=== PATIENT | male | born 1965 | race Two or more races ===

== ENCOUNTER 2019-03-07 05:48 | Day surgery (SDC) | payer OTHER ==
[~2019-03-07] VITALS: Ht 165.1 cm; Wt 74.3 kg
[~2019-03-07 05:48] MED LIST: atorvastatin PO; lisinopril PO; metformin PO; zoloft PO
[2019-03-07 07:44] VITALS: Ht 165.1 cm; Wt 74.3 kg
[2019-03-07 07:58] VITALS: BP 122/78; PULSE 56; RESP 22
[2019-03-07 09:28] VITALS: BP 108/64; RESP 20
== END 2019-03-07 14:26 | disposition home or self-care (01) ==
LOC: GIL 05:48
PROVIDERS: ATTEND Internal Medicine Gastroenterology
DX: Z12.11 Encounter for screening for malignant neoplasm of colon (principal); K64.8 Other hemorrhoids; D12.5 Benign neoplasm of sigmoid colon; D12.3 Benign neoplasm of transverse colon; I10 Essential (primary) hypertension; E11.9 Type 2 diabetes mellitus without complications
CPT/HCPCS: 45385; 82962; 88305; Z7610